=== PATIENT | male | born 1950 | race Caucasian/White ===

== ENCOUNTER 2016-12-10 10:37 | Day surgery (SDC) | payer OTHER ==
[~2016-12-10 10:37] MED LIST: BACITRACIN 50,000 UNITS/10 ML SYR IRR ONE; BUPIVACAINE 0.5% 30 ML SDV ONE; DEXAMETHASONE 4 MG/ML VIAL ONE; ROPIVACAINE HCL 20 MG/10 ML INJ EP ONE; ceFAZolin 2 GM/DEXTROSE 100 ML IV ONE
[2016-12-10] MEDS ORDERED: LIDOCAINE 1% 5 ML SDV ID PRN (11:15)
[2016-12-10] MEDS ORDERED: LR 1,000 ML IV ONE (11:15)
[2016-12-10] MEDS ORDERED: CEFAZOLIN 2 GM/DEXTROSE/100 ML BAG IV ONE (11:26)
[2016-12-10] MEDS ORDERED: MIDAZOLAM 2 MG/2 ML VIAL ONE ×2 (12:09→12:23)
[2016-12-10] MEDS ORDERED: fentaNYL 100 MCG/2 ML INJ ONE (12:22)
[2016-12-10] MEDS ORDERED: PROPOFOL/EMULSION 500 MG/50 ML BOTTLE IV ONE (12:23)
[2016-12-10] MEDS ORDERED: PROPOFOL 200 MG/20 ML VIAL ONE (12:56)
[2016-12-10] MEDS ORDERED: BUPIVACAINE 0.25% 30 ML SDV ONE (14:20)
[2016-12-10] MEDS ORDERED: ONDANSETRON 4 MG/2 ML VIAL IVP PRN (15:19)
[2016-12-10] MEDS ORDERED: ONDANSETRON DISINTEGRATING 4 MG TAB PO PRN (15:19)
[2016-12-10] MEDS ORDERED: PROMETHAZINE HCL 25 MG TAB PO PRN (15:20)
--- NOTE | 2016-12-11 04:33 | GOP ---
[f rep st] OPERATIVE REPORT DATE OF OPERATION: 12/10/2016 SURGEON: Halley Koch DPM [employer] ATTORNEY: Madelaine Koch DPM ANESTHESIA: MAC transitioned to general. ANESTHESIOLOGIST: Miguel Baker MD PREOPERATIVE DIAGNOSIS: Advanced bunion, hallux abductovalgus, right foot. POSTOPERATIVE DIAGNOSIS: Advanced bunion hallux abductovalgus, right foot with degenerative changes and gouty arthritis, right foot. PROCEDURE PERFORMED: Fusion of the first metatarsal phalangeal joint with screw and plate fixation, use of priya bone graft. FINDINGS: pasty white debris within joint capsule and within the joint. extensive amount noted. ESTIMATED BLOOD LOSS: Less than 5 cc. INDICATIONS: Progression of deformity over the years, very much an annoyance, history of pain, history of gout. At this time the patient elects to proceed with surgery. DESCRIPTION OF PROCEDURE: Patient was brought into the operating room, placed on the operating table in the supine position. Intravenous sedation administered by the anesthesiologist. A posterior tibial and peripheral nerve block was obtained utilizing a total of 24 cc of a 1:1:1 mix of 0.5% Marcaine plain, 0.2% ropivacaine and 1% lidocaine plain. The lower extremity was prepped and draped in the usual sterile manner. After the limb had been elevated with exsanguinated with an Esmarch bandage. An ankle tourniquet was inflated to 230 mmHg and the procedure was begun. Webril padding utilized under the ankle cuff. Because the patient was moving quite a bit, anesthesiologist had elected to transition him to general anesthesia. Attention was directed toward the dorsal medial aspect of the 1st metatarsophalangeal joint. A linear incision was created, incision was carefully deepened with care of neurovascular structures and clamped and cauterized. Bleeders, linear incision created through the capsule and periosteum, white pasty substance consistent with that of gouty tophi was identified within the medial capsule and along the whole dorsal aspect of the joint, as well throughout the joint encompassing majority of the dorsal lateral aspect of the 1st metatarsal head. Cartilage was noted to be very thin with erosions, and on the base of the proximal phalanx cartilage was also noted to be thinned with gouty tophi and erosive along its circumference. Gouty tophi were debrided and removed. The joint was prepped with the Arthrex reamers. C- arm was utilized to verify alignment positioning of the K-wire for the reamers. Once cartilage was resected of the first met head and base of the phalanx, drilling was perferformed and some fish scaling with osteotome and mallet, prepping the joint for fusion. Prior to performing the drilling and prepping of the joint, the joint was copiously irrigated with bacitracin irrigation solution. Priya bone graft was placed into the joint. The hallux was placed into reduced position improving the 1st intermetatarsal angle as well as the hallux alignment. Placing the toe to rectus resulted in a varus appearing toe and very open/wide first web space, and so there was concern with shoe fit, with this ideal rectus toe and so hallux was placed in slight abduction, as well as slight dorsiflexed position approximately 5 degrees for optimal shoe fit and function. Temporary fixation achieved with K-wires. C-arm pictures taken to verify good positioning and alignment. Once this was achieved it was determined that the 1st MPJ fusion plate regular standard locking plate fit the best, it was temporally fixated with tacks. Compression screw was then placed across the fusion site from distal medial to proximal lateral, a 3.5 26 mm headless screw. Then the plate was fixated, with a distal 3 mm 14 mm in length locking screw, and a compression nonlocking cortical screw was placed, a 3 mm measuring 18 mm in length. Then another distal locking screw was placed measuring 16 mm in length, 3 mm in size, then another proximal locking screw was placed 18 mm in length, another 3 mm, and then finally distally another 14 mm length 3 mm screw. Alignment and fixation was good, however since remaing pin was still in place for onemore compression screw , i decided to add to secure fixation, so a 3.5 mm headless screw measuring 24 mm in length. C-arm pictures taken throughout the procedure to verify alignment positioning. Wound was copiously irrigated with bacitracin irrigation solution throughout the procedure. Release of the tourniquet, normal hyperemic response was noted to all digits. Capsular closure achieved with 2-0, 3-0 Vicryl. Subcutaneous closure with 4-0 Monocryl and the skin was closed with 4-0 Prolene in a horizontal mattress in single interrupted suture manner. Dressings included Xeroform, 4x4s, fluffs, Jose A reinforced with tape and an Frandy bandage. Patient tolerated the procedure and anesthesia well and left the operating room with vital signs stable and vascular status intact to all digits. There were no intraoperative complications. In postoperative recovery, the patient was doing well. His daughter and will be providing the transportation home. He is to follow up in our office in 2 days for wound check. Prognosis good. ADDITIONAL INJECTABLES: Included 10 cc of 0.25% Marcaine plain. PATHOLOGY: Uric acid crystal sent to Pathology for gross and microscopic examination. /[id number]/MODL MTDD
== END 2016-12-10 17:07 | disposition home or self-care (01) ==
LOC: FSGY 10:37
PROVIDERS: ATTEND Podiatrist
PROC: 0SGM0KZ Fusion of Right Metatarsal-Phalangeal Joint with Nonautologous Tissue Substitute, Open Approach (ICD-10-PCS; principal; 2016-12-10 12:00)
DX: M20.11 Hallux valgus (acquired), right foot (principal); I10 Essential (primary) hypertension
CPT/HCPCS: 28750; 73620; C1769; C1713; C1762; J0690; J1100; J2250; J2704; J2795; J3010

== ENCOUNTER → 2018-12-28 | Outpatient (CLI) | payer OTHER | LOC: FIMAGING 07:07 | PROVIDERS: ATTEND Internal Medicine Hematology & Oncology | DX: E83.119 Hemochromatosis, unspecified (principal); R77.2 Abnormality of alphafetoprotein ==